=== PATIENT | male | born 2000 | race Caucasian/White ===

== ENCOUNTER 2023-06-02 07:01 | Emergency (ER) | payer OTHER ==
[2023-06-02 07:26] VITALS: BP 168/73; O2SAT 96
--- NOTE | 2023-06-02 07:43 | ED Physician Documentation ---
History of Present Illness - Stated complaint Stated Complaint: BACK PX - Chief complaint Chief Complaint: Back Pain - Additonal information Additional information: 22-year-old male with known history of L5-S1 propulse disc presenting with back pain. Reports worsening pain similar to pain he has had in the past for the last several days. Has used barrier and body for pain control without relief Denies fever, saddle paresthesia, loss of bowel bladder control, previous back surgery., IVDA. Review of Systems Constitutional: denies: Fever Eyes: denies: Loss of vision Ears: denies: Loss of hearing Musculoskeletal: reports: Back pain PD PAST MEDICAL HISTORY - Past Medical History Past Medical History: Yes Musculoskeletal: Chronic back pain - Past Surgical History Past Surgical History: No - Present Medications Home Medications: Ambulatory Orders Medication Instructions Recorded Confirmed Acetaminophen [8 Hour Pain Relief] 650 mg PO Q8HR #30 tab 06/02/23 Cyclobenzaprine [Flexeril] 10 mg PO TID PRN #20 tablet 06/02/23 Ibuprofen [Motrin] 800 mg PO Q8H PRN #30 tablet 06/02/23 Lidocaine Patch 5% [Lidoderm Patch] 1 patch TOP DAILY PRN #10 patch 06/02/23 - Allergies Allergies/Adverse Reactions: Allergies Allergy/AdvReac Type Severity Reaction Status Date / Time No Known Drug Allergies Allergy Verified 06/02/23 07:21 - Social History Does the pt smoke?: No Smoking Status: Never smoker Does the pt drink ETOH?: No - Immunizations Immunizations are current?: Yes - POLST Patient has POLST: No PD ED PE NORMAL - General General: Alert and oriented X 3 - Respiratory Respiratory: No respiratory distress - Back Back: Other (Bilateral lumbar paraspinal muscle tenderness to palpation.). No: No spinal TTP Results - Vitals Vitals: Vital Signs - 24 hr 06/02/23 07:15 Temperature 36.4 C L Heart Rate 80 Respiratory 20 Rate Blood Pressure 168/73 H O2 Saturation 96 Oxygen O2 Source Room air PD Medical Decision Making - ED course Complexity details: considered differential, d/w patient ED course: Patient 22-year-old male presenting with back pain. Reports history of L5-S1 propulse disc that was evaluated in [place]. Denies trauma to the back. No red flags that would be suggestive of cauda equina, spinal epidural abscess, transverse myelitis. Likely as recurrent pain in setting of early degenerative disc disease. Will initiate course acetaminophen, nonsteroidal anti- inflammatory medications, muscle relaxer, Lidoderm patches. Will encourage foll ow-up with primary care. Clear return precautions given. Departure - Departure Disposition: 01 Home, Self Care Clinical Impression: Back pain Qualifiers: Back pain location: low back pain Chronicity: unspecified Back pain laterality: bilateral Sciatica presence: without sciatica Qualified Code(s): M54.50 - Low back pain, unspecified Instructions: ED Sciatica, ED Low Back Pain Injury Prescriptions: Acetaminophen [8 Hour Pain Relief] 650 mg PO Q8HR #30 tab Cyclobenzaprine [Flexeril] 10 mg PO TID PRN #20 tablet PRN Reason: Spasms Lidocaine Patch 5% [Lidoderm Patch] 1 patch TOP DAILY PRN #10 patch PRN Reason: pain Ibuprofen [Motrin] 800 mg PO Q8H PRN #30 tablet PRN Reason: PAIN &/OR FEVER Comments: Thank you for allowing us to care for you today [facility]. Have sent prescriptions to your preferred pharmacy, [facility] in [place]. Please use these as directed. Please be aware that this contains a muscle relaxer which is both sedating and potentially habit-forming. This medication should not be used for operating a motor vehicle, using of the machinery or you are the sole rail walker of young children. Is very important that you establish yourself with a primary care doctor at your earliest opportunity. Attached in this discharge instructions are some information about local area PCPs. If it anytime you develop new or worsening symptoms such as worsening pain, fever, numbness or tingling around the anus or genitalia, loss of bowel or bladder control or if you have any new or worsening symptoms please return to the emergency department immediately. Forms: Activity restrictions, PCP List
== END 2023-06-02 07:59 | disposition home or self-care (01) ==
LOC: ED 07:01
DX: M54.50 Low back pain, unspecified (principal)
CPT/HCPCS: 99283; 99284